=== PATIENT | male | born 1975 | race Caucasian/White ===

== ENCOUNTER 2017-05-07 13:41 | Outpatient (CLI) | payer OTHER | END 2017-05-07 13:42 | disposition critical access hospital (66) | LOC: EMS 13:41 | PROVIDERS: ATTEND Surgery | DX: Z72.89 Other problems related to lifestyle (principal) | CPT/HCPCS: A0425; A0429 ==

== ENCOUNTER 2017-05-07 14:13 | Emergency (ER) | payer OTHER ==
[2017-05-07 14:27] VITALS: BP 136/91
--- NOTE | 2017-05-07 15:08 | ED Physician Documentation ---
History of Present Illness - Stated complaint Stated Complaint: MHE - Chief complaint Chief Complaint: General - Additonal information Additional information: hx from pt police and EMS41 male arrested for being drunk and disorderly no injury no illness BA 280 and if >250 needs med clearance to go to assisted pt states he will have severe EtOh withdrawal police say they have a medical protocol to handle EtOH withdrawal Review of Systems Constitutional: denies: Fever Cardiac: denies: Chest pain / pressure Respiratory: denies: Cough GI: denies: Abdominal Pain, Vomiting Neurologic: denies: Headache, Head injury Immunocompromised: denies: Immunocompromised PD PAST MEDICAL HISTORY - Past Medical History Past Medical History: Yes GI: Cirrhosis - Allergies Allergies/Adverse Reactions: Allergies Allergy/AdvReac Type Severity Reaction Status Date / Time No Known Drug Allergies Allergy Verified 05/07/17 14:27 - Social History Does the pt smoke?: Yes Smoking Status: Current every day smoker Does the pt drink ETOH?: Yes PD ED PE NORMAL - Vitals Vital signs reviewed: Yes - General General: Other (alert sitting up in bed talking no acute distress maintaining his airway) - HEENT HEENT: Pharynx benign - Neck Neck: No bony TTP - Cardiac Cardiac: RRR - Respiratory Respiratory: No respiratory distress, Clear bilaterally - Derm Derm: Normal color - Extremities Extremities: No deformity - Neuro Neuro: Alert and oriented X 3, No motor deficit Results - Vitals Vitals: Vital Signs - 24 hr 05/07/17 14:17 Temperature 37.1 C Heart Rate 107 H Respiratory 18 Rate Blood Pressure 136/91 H O2 Saturation 98 Oxygen O2 Source Room air PD MEDICAL DECISION MAKING - ED course ED course: intoxicated but not injured or ill still awake and alert and maintaining airway feel safe for assisted Departure - Departure Disposition: 01 Home, Self Care Clinical Impression: Alcohol intoxication Qualifiers: Complication of substance-induced condition: uncomplicated Qualified Code(s): F10.920 - Alcohol use, unspecified with intoxication, uncomplicated Condition: Good Instructions: ED Alcohol Intoxication Comments: Mr Hawthorne may have alcohol withdrawal symptoms and may need medication for this - I understand the assisted has a medication protocol and medical staff to monitor alcohol withdrawal Under these circumstances, I feel Mr Hawthorne is cleared for assisted If he has severe alcohol withdrawal that is beyond the comfort or scope of the assisted staff, please return to the ER
== END 2017-05-07 15:25 | disposition home or self-care (01) ==
LOC: ED 14:13
DX: F19.20 Other psychoactive substance dependence, uncomplicated (principal); F17.200 Nicotine dependence, unspecified, uncomplicated
CPT/HCPCS: 80320; 99283